=== PATIENT | female | born 1930 | race Caucasian/White ===

== ENCOUNTER 2019-04-22 14:49 | Observation (INO) ==
[2019-04-22] MEDS ORDERED: Isovue-370 500 ML BOTTLE IVP ONE (14:58)
[2019-04-22 15:16] LABS: Basophils % 0.3 %; Eosinophils # 0.1 K/mcL (0.0-0.6); Eosinophils % 0.8 %; Hematocrit 34.7 % (35.3-44.9); Hemoglobin 11.1 g/dL (11.5-15.4); Immature Granulocytes % 0.4 % (0-4); Lymphocytes # 1.9 K/mcL (0.6-4.6); Lymphocytes % 24.9 %; Mean Corpuscular Hemoglobin 32.2 pg (28.0-33.3); Mean Corpuscular Volume 100.6 fL (83.0-100.0); Mean Platelet Volume 10.7 fL (9.4-12.4); Monocytes # 0.6 K/mcL (0.0-1.3); Monocytes % 7.2 %; Neutrophils # 5.1 K/mcL (1.6-8.9); Platelet Count 181 K/mcL (140-400); Red Blood Count 3.45 M/mcL (3.82-4.97); Red Cell Distribution Width 12.9 % (11.5-14.5); Segmented Neutrophils % 66.4 %; White Blood Count 7.6 K/mcL (4.3-11.1)
[2019-04-22] MEDS ORDERED: Ipratropium/Albuterol Neb 3 ML IH ONE (15:19)
--- NOTE | 2019-04-22 15:19 | Emergency Department Note ---
Disposition Clinical Impression: TAE (acute kidney injury), Generalized weakness Dyspnea Qualifiers: Dyspnea type: unspecified Qualified Code(s): R06.00 - Dyspnea, unspecified Disposition: Admitted As Inpatient Condition: Good Referrals: Mercedez Davey MD [Primary Care Provider] - Forms: ED Satisfaction Letter Time of Disposition: 17:08 General Adult HPI - General Chief complaint: ED Shortness of Breath/Dyspnea Stated complaint: General weakness Time Seen by Provider: 04/22/19 14:50 Source: patient, family, EMS Mode of arrival: EMS Limitations: no limitations Nursing Notes Reviewed: Yes Vital Signs Reviewed: Yes - History of Present Illness HPI Narrative: 88-year-old female presents via EMS with a complaint of weakness and shortness of breath. The patient is from home. States that her home health nurse came out and thought that her heart sounds are regular. They are also concerned that she might have UTI. The patient's family states for the last 2 days she has seemed to have increased work of breathing. States it is difficult for her to walk short distances in her home. The patient denies a cough. No fever. No nausea vomiting or diarrhea. She does not feel like she has UTI currently. No other complaints. Pt Subjective Complaint: Weakness, shortness of breath Onset (ago): day(s) Pain Scale: 0 Improves with: nothing Worsens with: nothing Associated symptoms: Reports: shortness of breath. Denies: chest pain, cough, fever/chills, nausea/vomiting Treatments Prior to Arrival: none - Related Data Home Medications Medication Instructions Recorded Confirmed Acetaminophen [Tylenol Arthritis] 650 mg PO BID 02/27/19 02/27/19 Ethosuximide [Zarontin] 250 mg PO BIDWM 02/27/19 02/27/19 Glucosamine Sulfate Dipot Chlr 1,000 mg PO BID 02/27/19 02/27/19 [Glucosamine] Latanoprost [Xalatan] 1 drop BOTH EYES QPM 02/27/19 02/27/19 Levothyroxine [Synthroid] 50 mcg PO QAM 02/27/19 02/27/19 Meloxicam 15 mg PO DAILY 02/27/19 02/27/19 Omeprazole [PriLOSEC] 40 mg PO DAILY 02/27/19 02/27/19 Previous Rx's Medication Instructions Recorded Lisinopril [Zestril] 10 mg PO DAILY #30 tablet 03/04/19 Polyethylene Glycol 3350 [MiraLAX] 17 gm PO DAILY PRN #30 powd.pack 03/04/19 Psyllium [Metamucil Fiber Singles 1 packet PO TID #90 powd.pack 03/04/19 Packet] Allergies Allergy/AdvReac Type Severity Reaction Status Date / Time No Known Allergies Allergy Verified 02/27/19 16:16 All systems ED: reviewed and negative except as stated. Constitutional: Reports: weakness. Denies: fever, chills Cardiovascular: Reports: dyspnea on exertion. Denies: chest pain Respiratory: Reports: dyspnea. Denies: cough Gastrointestinal: Denies: abdominal pain, nausea, vomiting, diarrhea Genitourinary: Denies: dysuria, hematuria Past Medical History - Past Medical History Attestation: Yes The following information was validated with the patient. Source: patient Medical history: Reports: GERD, seizures, thyroid disease Surgical history: Reports: non-contributory Psychiatric history: Reports: no psych history - Social History Smoking Status: Never smoker Alcohol use: Reports: none Drug use: Reports: none Physical Exam - General Limitations: no limitations General appearance: alert, in no apparent distress - Head Head exam: atraumatic, normocephalic, normal inspection - Eye Eye exam: Present: normal appearance - ENT ENT exam: normal exam - Neck Neck exam: Present: normal inspection - Chest Chest inspection: Present: normal inspection, symmetric chest wall rise - Respiratory Respiratory exam: Present: normal lung sounds bilaterally - Cardiovascular Cardiovascular exam: Present: regular rate, normal rhythm, irregular rhythm - Abdominal Exam Abdominal exam: Present: soft, Non-Tender. Absent: tenderness, distention, guarding, rigidity - Extremities Exam Extremities exam: Present: normal inspection, full ROM - Expanded Upper Extremity Exam Shoulder exam: Present: normal inspection, full ROM Arm exam: Present: normal inspection, full ROM Elbow exam: Present: normal inspection, full ROM Forearm/Wrist exam: Present: normal inspection, full ROM Hand exam: Present: normal inspection, full ROM - Expanded Lower Extremity Exam Hip/Pelvis exam: Present: normal inspection, full ROM Upper leg exam: Present: normal inspection, full ROM Knee exam: Present: normal inspection, full ROM Lower leg exam: Present: normal inspection, full ROM Ankle exam: Present: normal inspection, full ROM Foot/toe exam: Present: normal inspection, full ROM - Neurological Exam Neurological exam: Present: other (Alert, GCS 15, no focal deficits.) - Skin Skin exam: Present: warm, dry Course Course Narrative: Patient seen and examined. Vital signs reviewed. She is 100% on room air. She appears somewhat anxious on exam. Plan for an EKG, chest x-ray, labs for her weakness. We will also obtain a CTA given her recent admission, lower shimmy swelling and exertional dyspnea to evaluate for pulmonary embolism. - Reevaluation(s) Reevaluation #1: Labs reviewed. She does have an acute kidney injury. Discussed with patient and family. They state she does not really eat and drink well at home. In light of her acute kidney injury the CTA of her chest was canceled and a VQ scan has been ordered. We will continue IV fluids. Vital Signs Temperature 97.7 F 04/22/19 14:57 Pulse Rate 82 04/22/19 14:57 Respiratory Rate 20 04/22/19 14:57 Blood Pressure 159/77 04/22/19 14:57 O2 Sat by Pulse Oximetry 98 04/22/19 14:57 Temperature 97.7 F 04/22/19 14:57 Pulse Rate 82 04/22/19 14:57 Respiratory Rate 16 04/22/19 15:44 Blood Pressure 159/77 04/22/19 14:57 O2 Sat by Pulse Oximetry 99 04/22/19 15:44 Oxygen Delivery Oxygen Delivery Room Air Medical Decision Making - [facility] Narrative Medical decision making narrative: 88-year-old female presenting with weakness, shortness of breath. She is hem odynamically stable here. Her EKG is unchanged from previous. Her chest x-ray unremarkable. Terms of labs she does have an elevated creatinine of 1.5 which was normal last month. I suspect a component of deconditioning being home now from the detention. She was unable to urinate initially for us. She has been given 500 mL of normal saline. She is pending VQ scan at time of admission. Patient admitted to the hospitalist service. - Lab Data Lab results reviewed: Yes I reviewed the patient's lab results. Result diagrams: 04/22/19 15:05 04/22/19 15:05 Lab Results 04/22/19 04/22/19 Range/Units 15:05 15:05 WBC 7.6 (4.3-11.1) K/mcL RBC 3.45 L (3.82-4.97) M/mcL Hgb 11.1 L (11.5-15.4) g/dL Hct 34.7 L (35.3-44.9) % MCV 100.6 H (83.0-100.0) fL MCH 32.2 (28.0-33.3) pg MCHC 32.0 (31.6-35.5) g/dL RDW 12.9 (11.5-14.5) % Plt Count 181 (140-400) K/mcL MPV 10.7 (9.4-12.4) fL Immature Gran % 0.4 (0-4) % Seg Neutrophils % 66.4 % Lymphocytes % 24.9 % Monocytes % 7.2 % Eosinophils % 0.8 % Basophils % 0.3 % Neutrophils # 5.1 (1.6-8.9) K/mcL Lymphocytes # 1.9 (0.6-4.6) K/mcL Monocytes # 0.6 (0.0-1.3) K/mcL Eosinophils # 0.1 (0.0-0.6) K/mcL Basophils # 0.0 (0.0-0.2) K/mcL Sodium 136 (136-145) mEq/L Potassium 4.3 (3.5-5.1) mEq/L Chloride 108 H (98-107) mEq/L Carbon Dioxide 21 L (23-29) mEq/L BUN 43 H (8-23) mg/dL Creatinine 1.50 H (0.60-1.20) mg/dL Est GFR ( Amer) 40 L (> 60) Est GFR (Non-Af Amer) 33 L (> 60) BUN/Creatinine Ratio 29 H (6-26) Glucose 78 (70-105) mg/dL Calculated Osmolality 292 (280-300) Calcium 8.9 (8.6-10.3) mg/dL Troponin I < 0.03 (< 0.04) ng/mL - Radiology Data Radiology results reviewed: Yes I reviewed the patient's radiology results. Chest X-Ray 04/22/19 14:50 IMPRESSION: No acute abnormality. D/ / Dominic Caballero MD / Dominic Caballero MD Interpreting Provider: Dominic Caballero MD - EKG Data EKG #1 EKG attestation: Yes I reviewed and interpreted this EKG. EKG results narrative: EKG demonstrates sinus rhythm with a rate of 82 beats or minute. Normal axis. Normal intervals. Normal R-wave progression. No gross ST elevations or depressions. T-wave inversions in lead 3, aVF, V4 V5 and V6. S.B.A.R. - S.B.A.R. Situation: Demographics, MOA Background: Presenting Complaint, Relevant PMH, Meds, & Allergies Assessment: Course and respsone to treatment, Exam Concerns, Patient/Family Expectation, Pertinant Lab Results Recommendation: Barrier(s) to disposition, Recommendation based on pending studies, treatments, or consults S.B.A.RChris Report Given to: Dr. Melissa Moreno Repor Time: 17:09
[2019-04-22 15:38] LABS: BUN/Creatinine Ratio 29 (6-26); Blood Urea Nitrogen 43 mg/dL (8-23); Calcium 8.9 mg/dL (8.6-10.3); Carbon Dioxide 21 mEq/L (23-29); Chloride 108 mEq/L (98-107); Glucose 78 mg/dL (70-105); Osmolality,Calculated 292 (280-300); Potassium 4.3 mEq/L (3.5-5.1); Sodium 136 mEq/L (136-145); eGFR For African Americans 40 (> 60); eGFR For Non-African Americans 33 (> 60)
[2019-04-22 15:39] LABS: Troponin I < 0.03 ng/mL (< 0.04)
[2019-04-22] MEDS ORDERED: 0.9 % Sodium Chloride 500 ML IVC ONE (15:41)
[2019-04-22] MEDS ORDERED: Ondansetron 4 MG/2 ML VIAL IVP PRN (17:13)
[2019-04-22] MEDS ORDERED: Naloxone 0.4 MG/ML INJ IVP PRN (17:13)
[2019-04-22] MEDS ORDERED: 0.9 % Sodium Chloride 1,000 ML IVC SCH (17:15)
--- NOTE | 2019-04-22 17:25 | Internal Med History&Physical ---
Date of Encounter: 04/22/19 Time of Encounter: 17:21 Internal Medicine - H&P: HPI Chief complaint: weakness and SOB 3 days duration Admitted From: Home History of present illness: Ms. Eli is a 88 year old female with history of seizure on antiseizure medication and history of hypothyroidism history of left leg cellulitis, presented to the ER with chief complaint of generalized weakness and shortness of breath, patient states that is she starts having progressive generalized weakness over the last 2 days with dyspnea on exertion, patient denied chest pain however she reports simple dry cough, patient also denied dysuria urgency frequency or lower abdominal discomfort denied nausea vomiting or change in bowel movement, denies fever chills. Patient reports pain of the left leg with swelling and redness, patient has history of left leg cellulitis secondary to cat bite in February 2019 in the ER she was found to have acute kidney injury with a serum creatinine 1.5, chest x-ray and acute VQ scan was ordered by the ER physician to rule out acute pulmonary embolism Past Med Surg Social Fam HX - Past Medical History Medical history: GERD, seizures, thyroid disease Psychiatric history: no psych history - Past Surgical History Surgical History: non-contributory - Social History Smoking Status: Never smoker Alcohol use: none Drug use: none - Family History Mother Living Status: Hx Family Cardiac Disorders: Yes Father Living Status: Hx Family Cardiac Disorders: Yes Internal Medicine - H&P: Meds Acetaminophen [Tylenol Arthritis] 650 mg PO BID 02/27/19 [History] Ethosuximide [Zarontin] 250 mg PO BIDWM 02/27/19 [History] Glucosamine Sulfate Dipot Chlr [Glucosamine] 1,000 mg PO BID 02/27/19 [History] Latanoprost [Xalatan] 1 drop BOTH EYES QPM 02/27/19 [History] Levothyroxine [Synthroid] 50 mcg PO QAM 02/27/19 [History] Meloxicam 15 mg PO DAILY 02/27/19 [History] Omeprazole [PriLOSEC] 40 mg PO DAILY 02/27/19 [History] Lisinopril [Zestril] 10 mg PO DAILY #30 tablet 03/04/19 [Rx] Polyethylene Glycol 3350 [MiraLAX] 17 gm PO DAILY PRN #30 powd.pack 03/04/19 [Rx] Psyllium [Metamucil Fiber Singles Packet] 1 packet PO TID #90 powd.pack 03/04/19 [Rx] Allergy/AdvReac Type Severity Reaction Status Date / Time No Known Allergies Allergy Verified 02/27/19 16:16 All Systems PM: A 10-system review of systems was performed and is negative for pertinent fi ndings except as documented above in the HPI. Review of systems: Review of system: Regarding cardiology respiratory GI endocrine hematology musculoskeletal all negative except for multiple was mentioned in the H&P - Constitutional Vitals: Temp Pulse Resp BP Pulse Ox 97.7 F 82 16 159/77 99 04/22/19 14:57 04/22/19 14:57 04/22/19 15:44 04/22/19 14:57 04/22/19 15:44 Exam: Physical examination: Gen.: Patient is alert and oriented, not in respiratory distress or pain HEENT: perrla , EOMI, no thyroid gland enlargement, no neck mass, supple neck Heart: S1 and S2 jeremi, normal sinus rhythm, no cardiac murmur no gallop rhythm Chest: Air entry equal bilaterally, clear chest, no wheezing, crackles or crepitation Abdomen: Soft nontender nondistended positive bowel sounds, no organomegaly Extremities: There is redness swelling and tenderness of the left leg, peripheral pulses palpable Neuro: Able to move all 4 limbs, Internal Med - H&P Results - Labs CBC & Chem 7: 04/22/19 15:05 04/22/19 15:05 Labs: Short CBC 04/22/19 Range/Units 15:05 WBC 7.6 (4.3-11.1) K/mcL Hgb 11.1 L (11.5-15.4) g/dL Hct 34.7 L (35.3-44.9) % Plt Count 181 (140-400) K/mcL Neutrophils # 5.1 (1.6-8.9) K/mcL BMP 04/22/19 15:05 Sodium 136 Potassium 4.3 Chloride 108 H Carbon Dioxide 21 L BUN 43 H Creatinine 1.50 H Glucose 78 Calcium 8.9 Cardiac Enzymes 04/22/19 Range/Units 15:05 Troponin I < 0.03 (< 0.04) ng/mL - Impressions ITS Impressions Chest X-Ray 07/25/19 14:50 IMPRESSION: No acute abnormality. D/ / Dominic Caballero MD / Dominic Caballero MD Interpreting Provider: Dominic Caballero MD - Assessment and Plan (1) Left leg swelling Current Visit: Yes Status: Acute Assessment and plan: Left leg swelling with tenderness and erythema on the left that is more warm than the right, suspect possible recurrent of cellulitis Started empirically on IV cefazolin to cover for possible streptococcal infection as the most common cause of cellulitis, 1 g every 8 hour Order venous Doppler to rule out DVT Patient has no leukocytosis, no fever check d dimer (2) TAE (acute kidney injury) Current Visit: Yes Status: Acute Assessment and plan: Serum creatinine 1.5 with BUN 43 baseline creatinine less than 1 Start on gentle IV hydration Hold nephrotoxic medication ANA inhibitor and NSAID Sent for urinalysis and urine culture to rule out UTI however the patient denied any urinary symptoms (3) Dyspnea Current Visit: Yes Status: Acute Assessment and plan: order V/Q scan to r/p PE CXR non acute on telemetry order echo to evaulate heart function Qualifiers: Dyspnea type: unspecified Qualified Code(s): R06.00 - Dyspnea, unspecified (4) General weakness Current Visit: Yes Status: Acute Assessment and plan: Could be secondary to acute kidney injury /possible left leg cellulitis Continue on IV hydration and check serum magnesium and serum phosphorus replace serum electrolytes as indicated check TSH (5) Anemia Current Visit: No Status: Chronic Assessment and plan: Hb 11.1 close to baseline check iron studies , B12 and folate Qualifiers: Anemia type: unspecified type Qualified Code(s): D64.9 - Anemia, unspecified (6) Hypertension Current Visit: No Status: Chronic Assessment and plan: monitor BP hold ANA due to TAE may start on amalodpipine if systolic more than 160 Qualifiers: Hypertension type: unspecified Qualified Code(s): I10 - Essential (primary) hypertension (7) Hypothyroid Current Visit: No Status: Chronic Assessment and plan: resume on levothyroxine check TSH Qualifiers: Hypothyroidism type: unspecified Qualified Code(s): E03.9 - Hypothyroidism, unspecified (8) Seizure disorder Current Visit: No Status: Chronic Assessment and plan: resume on antiseizure medication - Time Spent With Patient Total time spent is greater than 50% in coordination of care (as documented) at patient's floor/unit and/or counseling patient:
[2019-04-22] MEDS ORDERED: Ipratropium/Albuterol Neb 3 ML IH PRN (17:37)
[2019-04-22 18:02] LABS: Bilirubin,Urine Negative (Negative); Blood,Urine Negative (Negative); Clarity,Urine Cloudy (Clear); Color,Urine Yellow (Yellow); Glucose,Urine (UA) Normal (Normal); Ketones,Urine Negative (Negative); Leukocyte Esterase,Urine Small (Negative); Nitrite,Urine Negative (Negative); Protein,Urine Negative (Neg-Trace); Specific Gravity,Urine 1.013 (1.010-1.025); Urobilinogen,Urine Normal (Normal)
[2019-04-22 18:04] LABS: Bacteria,Urine Many per hpf (None-Few); Hyaline Casts,Urine None Seen per lpf (None-Few); RBC,Urine 0-3 per hpf (0-3); Squamous Epithelial Cell,Urine Many per lpf (None-Few); WBC,Urine 15-30 per hpf (0-3)
[2019-04-22 18:43] LABS: Magnesium 1.8 mg/dL (1.6-2.6); Phosphorous 2.3 mg/dL (2.7-4.5)
[2019-04-22] MEDS: Acetaminophen 325 MG TABLET PO SCH (21:16)
[2019-04-22] MEDS: ceFAZolin 1,000 MG in Water for inj. (sterile) 10 ML IVP SCH (23:38)
[2019-04-23 05:30] LABS: Basophils % 0.3 %; Eosinophils # 0.2 K/mcL (0.0-0.6); Hematocrit 28.8 % (35.3-44.9); Immature Granulocytes % 0.5 % (0-4); Lymphocytes # 2.1 K/mcL (0.6-4.6); Lymphocytes % 33.2 %; Mean Corpuscular HGB Conc 32.6 g/dL (31.6-35.5); Mean Platelet Volume 10.3 fL (9.4-12.4); Monocytes # 0.4 K/mcL (0.0-1.3); Neutrophils # 3.6 K/mcL (1.6-8.9); Platelet Count 170 K/mcL (140-400); Red Blood Count 2.94 M/mcL (3.82-4.97); Red Cell Distribution Width 12.9 % (11.5-14.5); White Blood Count 6.4 K/mcL (4.3-11.1)
[2019-04-23 05:39] LABS: Hemoglobin 9.4 g/dL (11.5-15.4)
[2019-04-23 05:47] LABS: Albumin 2.9 g/dL (3.5-5.7); Albumin/Globulin Ratio 1.1 (1.1-2.2); Bilirubin,Total 0.4 mg/dL (0.3-1.0); Calcium 8.2 mg/dL (8.6-10.3); Globulin 2.6 g/dL (2.4-3.5); Potassium 4.4 mEq/L (3.5-5.1); Total Protein 5.5 g/dL (6.4-8.9)
[2019-04-23 05:49] LABS: % Iron Saturation 18 % (15-50); Iron 42 mcg/dL (50-170); Transferrin 170 mg/dL (203-362)
[2019-04-23 06:07] LABS: Ferritin 101 ng/mL (10-120)
[2019-04-23 08:19] LABS: Magnesium 1.8 mg/dL (1.6-2.6); Phosphorous 3.2 mg/dL (2.7-4.5)
[2019-04-23] MEDS ORDERED: amLODIPine 5 MG TABLET PO SCH (09:00)
[2019-04-23] MEDS: Acetaminophen 325 MG TABLET PO SCH ×2 (09:36→20:47)
[2019-04-23] MEDS: ceFAZolin 1,000 MG in Water for inj. (sterile) 10 ML IVP SCH (09:37)
[2019-04-23] MEDS: ETHOSUXIMIDE 250 MG PO SCH ×2 (09:37→18:29)
--- NOTE | 2019-04-23 12:24 | Internal Med Progress Note ---
Hospitalist Progress Note - Encounter Date of Encounter: 04/23/19 Time of Encounter: 12:21 - Subjective Interval History: the patient was seen and examined at bedside. 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 and started on BB report new cat bite of left leg 2 days ago, however no open wound on examination no chest pain no fever d/c iv fluid - Exam Vitals: Temp Pulse Resp BP Pulse Ox 98.1 F 82 16 158/77 98 04/23/19 12:09 04/23/19 12:09 04/23/19 12:04/23/19 12:04/23/19 12:09 Exam: Physical examination: Gen.: Patient is alert and oriented, not in respiratory distress or pain HEENT: perrla , EOMI, no thyroid gland enlargement, no neck mass, supple neck Heart: S1 and S2 jeremi, normal sinus rhythm, no cardiac murmur no gallop rhythm Chest: Air entry equal bilaterally, clear chest, no wheezing, crackles or cr epitation Abdomen: Soft nontender nondistended positive bowel sounds, no organomegaly Extremities: There is redness swelling and tenderness of the left leg, getting better, peripheral pulses palpable Neuro: Able to move all 4 limbs, - Assessment and Plan (1) Left leg swelling Current Visit: Yes Status: Acute Assessment and Plan: getting better could be cellulitis 2/2 to new cat bite patient reports domestic cat bite 2 days ago switch to oral augmentin venous doppler negative (2) TAE (acute kidney injury) Current Visit: Yes Status: Acute Assessment and Plan: improved on iv fluid d/c iv fluid serum creatinine 1.16 and bun 36 patient has no urinary symptoms follow urine culture (3) Dyspnea Current Visit: Yes Status: Acute Assessment and Plan: johnathan 2/2 to low ef heart failure echo show ef 30% V?Q scan show low probability for PE consult crawler tractor operator start on metoprolol 25 mg bid chest clear on examination troponin negative (4) General weakness Current Visit: Yes Status: Acute Assessment and Plan: pt/ot need placement (5) Anemia Current Visit: No Status: Chronic Assessment and Plan: hb 9.4 from 11.1 no sign of bleeding dilutional effect probably check FOBT no evidence of iron deficiency on iron studies (6) Hypertension Current Visit: No Status: Chronic Assessment and Plan: start on amlodipine and BB to better control BP (7) Hypothyroid Current Visit: No Status: Chronic (8) Seizure disorder Current Visit: No Status: Chronic - Time Spent with Patient Total time spent is greater than 50% in coordination of care (as documented) at patient's floor/unit and/or counseling patient: Internal Medicine: Result - Labs CBC & Chem 7: 04/23/19 05:15 04/23/19 05:15 Labs: Short CBC 04/22/19 04/23/19 Range/Units 15:05 05:15 WBC 7.6 6.4 (4.3-11.1) K/mcL Hgb 11.1 L 9.4 L D (11.5-15.4) g/dL Hct 34.7 L 28.8 L (35.3-44.9) % Plt Count 181 170 (140-400) K/mcL Neutrophils # 5.1 3.6 (1.6-8.9) K/mcL BMP 04/22/19 04/23/19 15:05 05:15 Sodium 136 139 Potassium 4.3 4.4 Chloride 108 H 113 H Carbon Dioxide 21 L 21 L BUN 43 H 36 H Creatinine 1.50 H 1.16 Glucose 78 101 Calcium 8.9 8.2 L Cardiac Enzymes 04/22/19 04/22/19 04/22/19 Range/Units 15:05 17:56 23:32 Troponin I < 0.03 < 0.03 < 0.03 (< 0.04) ng/mL 04/23/19 Range/Units 05:15 Troponin I < 0.03 (< 0.04) ng/mL Liver Function 04/23/19 Range/Units 05:15 Total Bilirubin 0.4 (0.3-1.0) mg/dL AST 8 L (13-39) Units/L ALT 6 L (7-52) Units/L Alkaline Phosphatase 42 (34-104) Units/L Albumin 2.9 L (3.5-5.7) g/dL Urine 04/22/19 Range/Units 17:51 Urine Color Yellow (Yellow) Urine Clarity Cloudy A (Clear) Urine pH 6.0 (5.0-8.0) pH Units Ur Specific [place] 1.013 (1.010-1.025) Urine Protein Negative (Neg-Trace) mg/dL Urine Glucose (UA) Normal (Normal) mg/dL - ABG Interpretation ABG results: PT/INR, D-dimer D-Dimer 3515 ng/mLFEU (0-500) H 04/22/19 17:56 - Impressions Impressions Chest X-Ray 04/22/19 14:50 IMPRESSION: No acute abnormality. D/ / Dominic Caballero MD / Dominic Caballero MD Interpreting Provider: Dominic Caballero MD Pulmonary Perfusion Imaging 04/22/19 15:47 IMPRESSION: Low probability for pulmonary embolus. D/ / Dominic Caballero MD / Dominic Caballero MD Interpreting Provider: Dominic Caballero MD Echocardiogram 04/23/19 00:00 Impressions: LVEF 35-40%. Moderate global left ventricular systolic dysfunction. Moderate concentric left ventricular hypertrophy. Mild left ventricular diastolic dysfunction. Normal right ventricular structure and function. Mild mitral regurgitation. Mild tricuspid regurgitation. Mild pulmonic regurgitation. No pulmonary hypertension. Ordering physician notified via [employer]. Left Ventricular Wall Motion: Rest Echo Findings The apex, apical inferior, mid inferior, basal inferior, apical anterior, mid anterior, basal anterior, apical septal, mid inferior septal, basal inferior septal, apical lateral, mid anterior lateral, basal anterior lateral, mid anterior septal, mid inferior lateral, basal anterior septal and basal inferior lateral bird were hypokinetic. Findings: Study Quality * Technically adequate exam. ECG Findings * Normal sinus rhythm. Left Ventricle * LVEF 35-40%. * Normal LV chamber size. * Moderate global left ventricular systolic dysfunction. * Moderate concentric left ventricular hypertrophy. * Mild left ventricular diastolic dysfunction. * Definity echo contrast was not used. Right Ventricle * Normal right ventricular structure and function. Left Atrium * Normal left atrial size. Right Atrium * Normal right atrial size. Interatrial Septum * Interatrial septum not well evaluated. * No evidence of PFO by color Doppler. Aortic Valve * Trileaflet aortic valve. * Mildly calcified aortic valve leaflets. * Trace aortic regurgitation. * No aortic stenosis. Mitral Valve * Normal mitral valve structure. * No mitral stenosis. * Mild mitral regurgitation. Tricuspid Valve * Normal tricuspid valve structure. * No tricuspid stenosis. * Mild tricuspid regurgitation. * Estimated RVSP is 32 mmHg. * Estimated RA pressure is 3 mmHg. * No pulmonary hypertension. Pulmonic Valve * Pulmonic valve is not well visualized. * No pulmonic stenosis. * Mild pulmonic regurgitation. Aorta * Normally sized aortic root. Pericardium * The pericardium appears normal. IVC * The IVC is not dilated. * > 50% respiratory change Consult Discharge Plan - Plan Referrals: Mercedez Davey MD [Primary Care Provider] - (3) Dyspnea Qualifiers: Dyspnea type: unspecified Qualified Code(s): R06.00 - Dyspnea, unspecified (5) Anemia Qualifiers: Anemia type: unspecified type Qualified Code(s): D64.9 - Anemia, unspecified (6) Hypertension Qualifiers: Hypertension type: unspecified Qualified Code(s): I10 - Essential (primary) hypertension (7) Hypothyroid Qualifiers: Hypothyroidism type: unspecified Qualified Code(s): E03.9 - Hypothyroidism, unspecified
--- NOTE | 2019-04-23 12:42 | Electrocardiograph Report ---
[facility] [employer] Test Date: 2019-04-22 Pat Name: Antoinette Eli Department: [id number] Room: 3A41 Gender: F Emergency Room Specialist: : [id number] Requested By: Jose Wasserman Order Number: [id number] Reading MD: Jim Daley Measurements Intervals [place] Rate: 82 P: 44 MD: 185 QRS: -32 QRSD: 117 T: -18 QT: 378 QTc: 442 Interpretive Statements Sinus rhythm Left ventricular hypertrophy Nonspecific T abnormalities, diffuse leads Electronically Signed On 04-23-2019 12:40:20 EDT by Jim Daley
--- NOTE | 2019-04-23 15:36 | Event Note ---
Date of Encounter: 04/23/19 Time of Encounter: 15:31 - Cardiology Event Note Cardiology consulted for new cardiomyopathy. I attempted to see patient, however states they are not sure they would like to see cardiology. concerned regarding bill for cardiology consult. I spent a lengthy amount of time explaining cardiology process. states understanding. Also states that if they decide they would like to see cardiology, they would like to see cardiology at [facility]. Cardiology will sign off. Re- consult if patient/family agreeable to see cardiology at [facility].
[2019-04-24 06:44] VITALS: BP 145/72
[2019-04-24 07:08] LABS: Basophils % 0.4 %; Eosinophils # 0.3 K/mcL (0.0-0.6); Eosinophils % 4.1 %; Hematocrit 31.2 % (35.3-44.9); Immature Granulocytes % 0.6 % (0-4); Lymphocytes # 2.9 K/mcL (0.6-4.6); Lymphocytes % 41.2 %; Mean Corpuscular HGB Conc 32.1 g/dL (31.6-35.5); Mean Corpuscular Hemoglobin 31.6 pg (28.0-33.3); Mean Corpuscular Volume 98.7 fL (83.0-100.0); Mean Platelet Volume 10.5 fL (9.4-12.4); Monocytes # 0.5 K/mcL (0.0-1.3); Monocytes % 7.2 %; Neutrophils # 3.3 K/mcL (1.6-8.9); Platelet Count 195 K/mcL (140-400); Red Blood Count 3.16 M/mcL (3.82-4.97); Segmented Neutrophils % 46.5 %; White Blood Count 7.1 K/mcL (4.3-11.1)
[2019-04-24 07:28] LABS: Albumin 2.9 g/dL (3.5-5.7); Albumin/Globulin Ratio 1.1 (1.1-2.2); Bilirubin,Total 0.4 mg/dL (0.3-1.0); Calcium 8.8 mg/dL (8.6-10.3); Globulin 2.7 g/dL (2.4-3.5); Potassium 4.4 mEq/L (3.5-5.1); Total Protein 5.6 g/dL (6.4-8.9)
[2019-04-24] MEDS: ETHOSUXIMIDE 250 MG PO SCH (07:46)
[2019-04-24] MEDS: Acetaminophen 325 MG TABLET PO SCH (07:47)
[2019-04-24] MEDS ORDERED: amLODIPine 5 MG TABLET PO SCH (09:00)
--- NOTE | 2019-04-24 09:23 | Internal Med Progress Note ---
Hospitalist Progress Note - Encounter Date of Encounter: 04/24/19 Time of Encounter: 09:20 - Subjective Interval History: the patient was seen and examined at bedside. feel well no cp or SOB at rest has new onset cardiomyopathy, i did consult branch operations manager for cardiac work up however patient refuse cardiology seeing patient due to cost concern and wants transfer patient to another facility, i did discuss with patient that such transfer is not to high level of care and probably will cost patient more will discuss it with today meanwhile started on coreg bid and lisinopril 10 mg daily - Exam Vitals: Temp Pulse Resp BP Pulse Ox 97.9 F 74 16 145/72 97 04/24/19 06:41 04/24/19 06:41 04/24/19 06:41 04/24/19 06:41 04/24/19 06:41 Exam: Physical examination: Gen.: Patient is alert and oriented, not in respiratory distress or pain HEENT: perrla , EOMI, no thyroid gland enlargement, no neck mass, supple neck Heart: S1 and S2 jeremi, normal sinus rhythm, no cardiac murmur no gallop rhythm Chest: Air entry equal bilaterally, clear chest, no wheezing, crackles or crepitation Abdomen: Soft nontender nondistended positive bowel sounds, no organomegaly Extremities: There is redness swelling and tenderness of the left leg getting better , peripheral pulses palpable Neuro: Able to move all 4 limbs, - Assessment and Plan (1) Left leg swelling Current Visit: Yes Status: Acute Assessment and Plan: getting better could be cellulitis 2/2 to new cat bite patient reports domestic cat bite 3 days ago switch to oral augmentin venous doppler negative (2) TAE (acute kidney injury) Current Visit: Yes Status: Resolved Assessment and Plan: mproved on iv fluid d/c iv fluid serum creatinine 1.13 and bun 28 patient has no urinary symptoms urine culture growing unspecified micro organism (3) Dyspnea Current Visit: Yes Status: Acute Assessment and Plan: johnathan 2/2 to new onset cardiomyopathy echo show ef 30% V?Q scan show low probability for PE consulted branch operations manager however signed off due to patient refusal cardiology recommend cardiac work up, patient refuse doing test in our hospital start on coreg and small dose ANA with recovery of renal function chest clear on examination troponin negative (4) General weakness Current Visit: Yes Status: Acute Assessment and Plan: 2/2 to cardiomyopathy and TAE pt/ot need placement (5) Anemia Current Visit: No Status: Chronic Assessment and Plan: hb 10 close to baseline no sign of bleeding check FOBT no evidence of iron deficiency on iron studies (6) Hypertension Current Visit: No Status: Chronic Assessment and Plan: better on new medication BB and ANA stop amlodipine (7) Hypothyroid Current Visit: No Status: Chronic Assessment and Plan: on levothyroxine (8) Seizure disorder Current Visit: No Status: Chronic Assessment and Plan: on home medication - Time Spent with Patient Total time spent is greater than 50% in coordination of care (as documented) at patient's floor/unit and/or counseling patient: Internal Medicine: Result - Labs CBC & Chem 7: 04/24/19 06:23 04/24/19 06:23 Labs: Short CBC 04/24/19 Range/Units 06:23 WBC 7.1 (4.3-11.1) K/mcL Hgb 10.0 L (11.5-15.4) g/dL Hct 31.2 L (35.3-44.9) % Plt Count 195 (140-400) K/mcL Neutrophils # 3.3 (1.6-8.9) K/mcL BMP 04/24/19 06:23 Sodium 138 Potassium 4.4 Chloride 109 H Carbon Dioxide 22 L BUN 28 H Creatinine 1.13 Glucose 97 Calcium 8.8 Liver Function 04/24/19 Range/Units 06:23 Total Bilirubin 0.4 (0.3-1.0) mg/dL AST 11 L (13-39) Units/L ALT 6 L (7-52) Units/L Alkaline Phosphatase 48 (34-104) Units/L Albumin 2.9 L (3.5-5.7) g/dL - ABG Interpretation ABG results: PT/INR, D-dimer D-Dimer 3515 ng/mLFEU (0-500) H 04/22/19 17:56 - Impressions Impressions Echocardiogram 04/23/19 00:00 Impressions: LVEF 35-40%. Moderate global left ventricular systolic dysfunction. Moderate concentric left ventricular hypertrophy. Mild left ventricular diastolic dysfunction. Normal right ventricular structure and function. Mild mitral regurgitation. Mild tricuspid regurgitation. Mild pulmonic regurgitation. No pulmonary hypertension. Ordering physician notified via [employer]. Left Ventricular Wall Motion: Rest Echo Findings The apex, apical inferior, mid inferior, basal inferior, apical anterior, mid anterior, basal anterior, apical septal, mid inferior septal, basal inferior septal, apical lateral, mid anterior lateral, basal anterior lateral, mid anterior septal, mid inferior lateral, basal anterior septal and basal inferior lateral bird were hypokinetic. Findings: Study Quality * Technically adequate exam. ECG Findings * Normal sinus rhythm. Left Ventricle * LVEF 35-40%. * Normal LV chamber size. * Moderate global left ventricular systolic dysfunction. * Moderate concentric left ventricular hypertrophy. * Mild left ventricular diastolic dysfunction. * Definity echo contrast was not used. Right Ventricle * Normal right ventricular structure and function. Left Atrium * Normal left atrial size. Right Atrium * Normal right atrial size. Interatrial Septum * Interatrial septum not well evaluated. * No evidence of PFO by color Doppler. Aortic Valve * Trileaflet aortic valve. * Mildly calcified aortic valve leaflets. * Trace aortic regurgitation. * No aortic stenosis. Mitral Valve * Normal mitral valve structure. * No mitral stenosis. * Mild mitral regurgitation. Tricuspid Valve * Normal tricuspid valve structure. * No tricuspid stenosis. * Mild tricuspid regurgitation. * Estimated RVSP is 32 mmHg. * Estimated RA pressure is 3 mmHg. * No pulmonary hypertension. Pulmonic Valve * Pulmonic valve is not well visualized. * No pulmonic stenosis. * Mild pulmonic regurgitation. Aorta * Normally sized aortic root. Pericardium * The pericardium appears normal. IVC * The IVC is not dilated. * > 50% respiratory change Consult Discharge Plan - Plan Referrals: Mercedez Davey MD [Primary Care Provider] - (3) Dyspnea Qualifiers: Dyspnea type: unspecified Qualified Code(s): R06.00 - Dyspnea, unspecified (5) Anemia Qualifiers: Anemia type: unspecified type Qualified Code(s): D64.9 - Anemia, unspecified (6) Hypertension Qualifiers: Hypertension type: unspecified Qualified Code(s): I10 - Essential (primary) hypertension (7) Hypothyroid Qualifiers: Hypothyroidism type: unspecified Qualified Code(s): E03.9 - Hypothyroidism, unspecified
--- NOTE | 2019-04-24 13:09 | Discharge Summary ---
Orders not resulted at time of discharge: Pending orders 04/22/19 17:56 Culture,Blood [BC] Stat Date of Encounter: 04/24/19 Time of Encounter: 13:06 - Discharge Diagnosis (1) Left leg swelling Priority: Primary Status: Acute (2) TAE (acute kidney injury) Priority: Secondary Status: Resolved (3) Dyspnea Priority: Primary Status: Acute Qualifiers: Dyspnea type: unspecified Qualified Code(s): R06.00 - Dyspnea, unspecified (4) General weakness Priority: Secondary Status: Acute (5) Anemia Priority: Secondary Status: Chronic Qualifiers: Anemia type: unspecified type Qualified Code(s): D64.9 - Anemia, unspecified (6) Hypertension Priority: Secondary Status: Chronic Qualifiers: Hypertension type: unspecified Qualified Code(s): I10 - Essential (primary) hypertension (7) Hypothyroid Priority: Secondary Status: Chronic Qualifiers: Hypothyroidism type: unspecified Qualified Code(s): E03.9 - Hypothyroidism, unspecified (8) Seizure disorder Priority: Secondary Status: Chronic Hospital course: Ms. Eli is a 88 year old female with history of high blood pressure was a dmitted because of acute shortness of breath with acute kidney injury was found to have a new onset cardiomyopathy with ejection fraction 30% on echocardiogram, still operator brandy was consulted however the patient's family refused cardiology service and they want take the patient to other hospital, patient started on Coreg and lisinopril, acute kidney injury has resolved, patient has no chest pain, I discussed with the patient's who prefer to leave AGAINST MEDICAL ADVICE, explained to the patient's and the patient's family risk of leaving AMA. patient will leave hospital AMA - Time Spent with Patient Total time spent providing and/or coordinating discharge services: Time spent: Greater than 30 minutes - Discharge Medications Prescriptions: No Action Meloxicam 15 mg PO DAILY Levothyroxine [Synthroid] 50 mcg PO QAM Ethosuximide [Zarontin] 250 mg PO BIDWM Acetaminophen [Tylenol Arthritis] 650 mg PO BID Latanoprost [Xalatan] 1 drop BOTH EYES QPM Omeprazole [PriLOSEC] 40 mg PO DAILY Docusate [Colace] 100 mg PO DAILY PRN PRN Reason: Constipation Aspirin [Lo-Dose Aspirin EC] 81 mg PO DAILY Glucosamine Sulfate Dipot Chlr [Glucosamine] 1,000 mg PO DAILY Megestrol Acetate [Megace] 400 mg PO DAILY Home Medications: Acetaminophen [Tylenol Arthritis] 650 mg PO BID 02/27/19 [History] Ethosuximide [Zarontin] 250 mg PO BIDWM 02/27/19 [History] Latanoprost [Xalatan] 1 drop BOTH EYES QPM 02/27/19 [History] Levothyroxine [Synthroid] 50 mcg PO QAM 02/27/19 [History] Meloxicam 15 mg PO DAILY 02/27/19 [History] Omeprazole [PriLOSEC] 40 mg PO DAILY 02/27/19 [History] Docusate [Colace] 100 mg PO DAILY PRN 04/22/19 [History] Aspirin [Lo-Dose Aspirin EC] 81 mg PO DAILY 04/23/19 [History] Glucosamine Sulfate Dipot Chlr [Glucosamine] 1,000 mg PO DAILY 04/23/19 [History] Megestrol Acetate [Megace] 400 mg PO DAILY 04/23/19 [History] Allergies/Adverse Reactions: Allergy/AdvReac Type Severity Reaction Status Date / Time No Known Allergies Allergy Verified 02/27/19 16:16 Date of admission: 04/22/19 18:01 Primary care physician: Mercedez Davey Consults: 04/22/19 17:15 Consult to Physical Therapy [CONS] Routine Comment: Evaluate, develop and implement POC Reason for Consult: weakness Does patient have active BEDREST order?: No Is patient medically & hemodynamically stable?: Yes Patient assessed for mobility or mobilized this visit?: Yes 04/22/19 21:02 Consult to Pattern Marking Supervisor [CONS] Routine Reason for SW Consult: D/c planning. Pt has therapy unsure who through 04/23/19 12:33 Consult to Occupational Therapy [CONS] Routine Comment: Evaluate, develop and implement POC Reason for Consult: weakness Does patient have active BEDREST order?: No Is patient medically & hemodynamically stable?: Yes Patient assessed for mobility or mobilized this visit?: No - Constitutional Vitals: Temp Pulse Resp BP Pulse Ox 97.9 F 74 16 145/72 97 04/24/19 06:41 04/24/19 06:41 04/24/19 06:41 04/24/19 06:41 04/24/19 06:41 Exam: Physical examination: Gen.: Patient is alert and oriented, not in respiratory distress or pain HEENT: perrla , EOMI, no thyroid gland enlargement, no neck mass, supple neck Heart: S1 and S2 jeremi, normal sinus rhythm, no cardiac murmur no gallop rhythm Chest: Air entry equal bilaterally, clear chest, no wheezing, crackles or crepitation Abdomen: Soft nontender nondistended positive bowel sounds, no organomegaly Extremities: There is redness swelling and tenderness of the left leg getting better , peripheral pulses palpable Neuro: Able to move all 4 limbs, - Patient Status Disposition: Home, Self-Care Condition: Good - Discharge Instructions Follow Up With: Mercedez Davey MD [Primary Care Provider] -
== END 2019-04-24 13:45 | disposition left against medical advice (07) ==
LOC: EMEROOARM 14:49 → 3ANU 14:49
PROVIDERS: ADMIT Internal Medicine Nephrology; ATTEND Internal Medicine Nephrology

== ENCOUNTER 2020-03-16 15:55 | Inpatient (IN) ==
[2020-03-16] MEDS ORDERED: *HR* Heparin 5,000 UNIT/ML VIAL IVP PRN ×2 (18:26)
[2020-03-16] MEDS ORDERED: *HR* Heparin 5,000 UNIT/ML VIAL IVP ONE (18:26)
[2020-03-16] MEDS ORDERED: Heparin 25,000 UNIT/250 ML D5W 25,000 UNIT/250 ML IV.SOLN IVC SCH (18:30)
[2020-03-16 18:57] LABS: Basophils % 0.6 %; Eosinophils # 0.1 K/mcL (0.0-0.6); Eosinophils % 1.8 %; Hematocrit 36.5 % (35.3-44.9); Hemoglobin 11.8 g/dL (11.5-15.4); Immature Granulocytes % 0.1 % (0-4); Lymphocytes # 2.4 K/mcL (0.6-4.6); Lymphocytes % 33.7 %; Mean Corpuscular HGB Conc 32.3 g/dL (31.6-35.5); Mean Corpuscular Hemoglobin 32.2 pg (28.0-33.3); Mean Corpuscular Volume 99.7 fL (83.0-100.0); Mean Platelet Volume 9.8 fL (9.4-12.4); Monocytes # 0.5 K/mcL (0.0-1.3); Monocytes % 7.6 %; Platelet Count 184 K/mcL (140-400); Red Blood Count 3.66 M/mcL (3.82-4.97); Red Cell Distribution Width 12.3 % (11.5-14.5); Segmented Neutrophils % 56.2 %; White Blood Count 7.1 K/mcL (4.3-11.1)
[2020-03-16 19:01] LABS: Heparin anti-factor XA UFH 0.08 IU/mL (0.30-0.70); INR 0.9; Prothrombin Time 10.7 Seconds (9.4-12.1)
[2020-03-16 19:04] LABS: Activated Partial Thrombo Time 30.2 Seconds (26.0-36.0)
[2020-03-16 19:17] LABS: Calcium 8.9 mg/dL (8.6-10.3)
[2020-03-16] MEDS ORDERED: 0.9 % Sodium Chloride 1,000 ML IVC SCH (21:00)
[2020-03-16] MEDS ORDERED: Acetaminophen 325 MG TABLET PO PRN (21:00)
[2020-03-16] MEDS ORDERED: Naloxone 0.4 MG/ML INJ IVP PRN (21:00)
[2020-03-16] MEDS ORDERED: *HR* Promethazine 25 MG/ML VIAL IVP PRN (21:00)
[2020-03-17 02:02] LABS: Basophils % 0.6 %; Eosinophils # 0.3 K/mcL (0.0-0.6); Eosinophils % 3.6 %; Hematocrit 30.2 % (35.3-44.9); Immature Granulocytes % 0.1 % (0-4); Lymphocytes # 3.1 K/mcL (0.6-4.6); Lymphocytes % 43.9 %; Mean Corpuscular HGB Conc 32.8 g/dL (31.6-35.5); Mean Corpuscular Hemoglobin 32.6 pg (28.0-33.3); Mean Corpuscular Volume 99.3 fL (83.0-100.0); Mean Platelet Volume 10.1 fL (9.4-12.4); Monocytes # 0.6 K/mcL (0.0-1.3); Monocytes % 8.4 %; Neutrophils # 3.1 K/mcL (1.6-8.9); Platelet Count 149 K/mcL (140-400); Red Blood Count 3.04 M/mcL (3.82-4.97); Red Cell Distribution Width 12.4 % (11.5-14.5); Segmented Neutrophils % 43.4 %; White Blood Count 7.2 K/mcL (4.3-11.1)
[2020-03-17 02:03] LABS: Hemoglobin 9.9 g/dL (11.5-15.4)
[2020-03-17 02:05] LABS: INR 1.1; Prothrombin Time 12.7 Seconds (9.4-12.1)
[2020-03-17 02:21] LABS: Calcium 8.1 mg/dL (8.6-10.3); Magnesium 1.8 mg/dL (1.6-2.6); Potassium 3.9 mEq/L (3.5-5.1)
[2020-03-17] MEDS ORDERED: ETHOSUXIMIDE 250 MG PO SCH (08:00)
[2020-03-17] MEDS: Aspirin Enteric Coated 81 MG Tablet PO SCH (08:28)
[2020-03-17] MEDS ORDERED: Apixaban 5 MG TABLET PO SCH (09:00)
[2020-03-17] MEDS: ETHOSUXIMIDE 250 MG PO SCH (13:27)
[2020-03-17 13:47] LABS: Hematocrit 32.9 % (35.3-44.9); Hemoglobin 10.5 g/dL (11.5-15.4); Mean Corpuscular HGB Conc 31.9 g/dL (31.6-35.5); Mean Corpuscular Hemoglobin 31.7 pg (28.0-33.3); Mean Corpuscular Volume 99.4 fL (83.0-100.0); Mean Platelet Volume 10.1 fL (9.4-12.4); Platelet Count 170 K/mcL (140-400); Red Blood Count 3.31 M/mcL (3.82-4.97); Red Cell Distribution Width 12.4 % (11.5-14.5); White Blood Count 6.2 K/mcL (4.3-11.1)
[2020-03-17] MEDS ORDERED: Latanoprost 2.5 ML BOTTLE BOTH EYES SCH (18:00)
[2020-03-17] MEDS ORDERED: Warfarin perPT PO PRN (18:00)
[2020-03-17 19:57] LABS: Vitamin B12 315 pg/mL (250-1100); Vitamin D 25 Hydroxy 17 ng/mL (30-80)
[2020-03-17] MEDS ORDERED: *HR* Heparin 5,000 UNIT/ML VIAL IVP PRN ×2 (21:00)
[2020-03-17] MEDS ORDERED: Heparin 25,000 UNIT/250 ML D5W 25,000 UNIT/250 ML IV.SOLN IVC SCH (21:00)
[2020-03-17] MEDS ORDERED: *HR* Warfarin 2.5 MG TABLET PO ONE (21:00)
[2020-03-17] MEDS: Heparin 25,000 UNIT/250 ML D5W 25,000 UNIT/250 ML IV.SOLN IVC SCH (23:58)
[2020-03-18 02:25] LABS: INR 1.3; Prothrombin Time 14.5 Seconds (9.4-12.1)
[2020-03-18 08:52] LABS: Basophils % 0.3 %; Eosinophils # 0.3 K/mcL (0.0-0.6); Eosinophils % 4.9 %; Hematocrit 31.1 % (35.3-44.9); Hemoglobin 10.2 g/dL (11.5-15.4); Immature Granulocytes % 0.2 % (0-4); Lymphocytes # 2.5 K/mcL (0.6-4.6); Mean Corpuscular HGB Conc 32.8 g/dL (31.6-35.5); Mean Corpuscular Hemoglobin 32.3 pg (28.0-33.3); Mean Corpuscular Volume 98.4 fL (83.0-100.0); Mean Platelet Volume 10.1 fL (9.4-12.4); Monocytes # 0.5 K/mcL (0.0-1.3); Monocytes % 7.2 %; Platelet Count 153 K/mcL (140-400); Red Blood Count 3.16 M/mcL (3.82-4.97); Red Cell Distribution Width 12.3 % (11.5-14.5); Segmented Neutrophils % 47.4 %; White Blood Count 6.3 K/mcL (4.3-11.1)
[2020-03-18] MEDS ORDERED: amLODIPine 5 MG TABLET PO SCH (09:00)
[2020-03-18 09:12] LABS: Calcium 8.8 mg/dL (8.6-10.3); Potassium 4.1 mEq/L (3.5-5.1)
[2020-03-18] MEDS: Aspirin Enteric Coated 81 MG Tablet PO SCH (09:30)
[2020-03-18] MEDS: ETHOSUXIMIDE 250 MG PO SCH (09:30)
[2020-03-18] MEDS ORDERED: *HR* Warfarin 2.5 MG TABLET PO ONE (18:00)
[2020-03-18] MEDS: Latanoprost 2.5 ML BOTTLE BOTH EYES SCH (20:40)
[2020-03-19 01:43] LABS: Basophils % 0.4 %; Eosinophils # 0.3 K/mcL (0.0-0.6); Eosinophils % 3.6 %; Hemoglobin 9.4 g/dL (11.5-15.4); Immature Granulocytes % 0.3 % (0-4); Lymphocytes # 2.8 K/mcL (0.6-4.6); Lymphocytes % 40.1 %; Mean Corpuscular HGB Conc 32.4 g/dL (31.6-35.5); Mean Corpuscular Hemoglobin 31.9 pg (28.0-33.3); Mean Corpuscular Volume 98.3 fL (83.0-100.0); Mean Platelet Volume 10.2 fL (9.4-12.4); Monocytes # 0.6 K/mcL (0.0-1.3); Monocytes % 8.8 %; Neutrophils # 3.3 K/mcL (1.6-8.9); Platelet Count 147 K/mcL (140-400); Red Blood Count 2.95 M/mcL (3.82-4.97); Red Cell Distribution Width 12.3 % (11.5-14.5); Segmented Neutrophils % 46.8 %
[2020-03-19 02:06] LABS: Calcium 8.4 mg/dL (8.6-10.3)
[2020-03-19 02:35] LABS: INR 1.1; Prothrombin Time 12.3 Seconds (9.4-12.1)
[2020-03-19] MEDS: Heparin 25,000 UNIT/250 ML D5W 25,000 UNIT/250 ML IV.SOLN IVC SCH (06:29)
[2020-03-19] MEDS: ETHOSUXIMIDE 250 MG PO SCH (07:49)
[2020-03-19] MEDS: amLODIPine 5 MG TABLET PO SCH (07:49)
[2020-03-19] MEDS: Aspirin Enteric Coated 81 MG Tablet PO SCH (07:49)
[2020-03-19] MEDS: 0.9 % Sodium Chloride 1,000 ML IVC SCH (15:20)
[2020-03-19] MEDS ORDERED: *HR* Warfarin 5 MG TABLET PO ONE (18:00)
[2020-03-19] MEDS: Latanoprost 2.5 ML BOTTLE BOTH EYES SCH (20:15)
[2020-03-20 02:53] LABS: Basophils % 0.4 %; Eosinophils # 0.3 K/mcL (0.0-0.6); Eosinophils % 4.1 %; Hematocrit 29.1 % (35.3-44.9); Hemoglobin 9.2 g/dL (11.5-15.4); Immature Granulocytes % 0.3 % (0-4); Lymphocytes # 2.6 K/mcL (0.6-4.6); Lymphocytes % 35.7 %; Mean Corpuscular HGB Conc 31.6 g/dL (31.6-35.5); Mean Corpuscular Hemoglobin 31.4 pg (28.0-33.3); Mean Corpuscular Volume 99.3 fL (83.0-100.0); Mean Platelet Volume 10.3 fL (9.4-12.4); Monocytes # 0.6 K/mcL (0.0-1.3); Monocytes % 8.5 %; Neutrophils # 3.7 K/mcL (1.6-8.9); Platelet Count 147 K/mcL (140-400); Red Blood Count 2.93 M/mcL (3.82-4.97); Red Cell Distribution Width 12.3 % (11.5-14.5); White Blood Count 7.3 K/mcL (4.3-11.1)
[2020-03-20 02:57] LABS: INR 1.2; Prothrombin Time 13.8 Seconds (9.4-12.1)
[2020-03-20 03:14] LABS: Calcium 8.4 mg/dL (8.6-10.3); Potassium 3.9 mEq/L (3.5-5.1)
[2020-03-20] MEDS: Aspirin Enteric Coated 81 MG Tablet PO SCH (08:39)
[2020-03-20] MEDS: amLODIPine 5 MG TABLET PO SCH (08:39)
[2020-03-20] MEDS: carvediloL 6.25 MG TABLET PO SCH ×2 (08:39→17:42)
[2020-03-20] MEDS: ETHOSUXIMIDE 250 MG PO SCH (08:40)
[2020-03-20] MEDS: 0.9 % Sodium Chloride 1,000 ML IVC SCH (17:43)
[2020-03-20] MEDS: Heparin 25,000 UNIT/250 ML D5W 25,000 UNIT/250 ML IV.SOLN IVC SCH (17:46)
[2020-03-20] MEDS ORDERED: *HR* Warfarin 5 MG TABLET PO ONE (18:00)
[2020-03-20] MEDS: Latanoprost 2.5 ML BOTTLE BOTH EYES SCH (20:15)
[2020-03-21] MEDS: Heparin 25,000 UNIT/250 ML D5W 25,000 UNIT/250 ML IV.SOLN IVC SCH ×2 (00:23→19:37)
[2020-03-21 02:30] LABS: Basophils % 0.4 %; Eosinophils # 0.4 K/mcL (0.0-0.6); Eosinophils % 5.2 %; Hematocrit 28.9 % (35.3-44.9); Hemoglobin 9.4 g/dL (11.5-15.4); Immature Granulocytes % 0.3 % (0-4); Lymphocytes # 2.6 K/mcL (0.6-4.6); Lymphocytes % 34.2 %; Mean Corpuscular HGB Conc 32.5 g/dL (31.6-35.5); Mean Corpuscular Hemoglobin 31.5 pg (28.0-33.3); Monocytes # 0.7 K/mcL (0.0-1.3); Monocytes % 8.6 %; Platelet Count 163 K/mcL (140-400); Red Blood Count 2.98 M/mcL (3.82-4.97); Red Cell Distribution Width 12.4 % (11.5-14.5); Segmented Neutrophils % 51.3 %; White Blood Count 7.7 K/mcL (4.3-11.1)
[2020-03-21 02:48] LABS: Calcium 8.2 mg/dL (8.6-10.3); Potassium 4.1 mEq/L (3.5-5.1)
[2020-03-21 03:30] LABS: INR 1.8; Prothrombin Time 20.3 Seconds (9.4-12.1)
[2020-03-21] MEDS: carvediloL 6.25 MG TABLET PO SCH ×2 (08:48→17:33)
[2020-03-21] MEDS: Aspirin Enteric Coated 81 MG Tablet PO SCH (08:48)
[2020-03-21] MEDS: amLODIPine 5 MG TABLET PO SCH (08:48)
[2020-03-21] MEDS: ETHOSUXIMIDE 250 MG PO SCH (08:49)
[2020-03-21] MEDS: 0.9 % Sodium Chloride 1,000 ML IVC SCH (15:42)
[2020-03-21] MEDS ORDERED: *HR* Warfarin 2.5 MG TABLET PO ONE (18:00)
[2020-03-21] MEDS: Latanoprost 2.5 ML BOTTLE BOTH EYES SCH (19:37)
[2020-03-22 02:39] LABS: Basophils % 0.5 %; Eosinophils # 0.3 K/mcL (0.0-0.6); Hematocrit 31.1 % (35.3-44.9); Hemoglobin 10.2 g/dL (11.5-15.4); Immature Granulocytes % 0.4 % (0-4); Lymphocytes # 2.8 K/mcL (0.6-4.6); Lymphocytes % 35.1 %; Mean Corpuscular HGB Conc 32.8 g/dL (31.6-35.5); Mean Corpuscular Hemoglobin 31.7 pg (28.0-33.3); Mean Corpuscular Volume 96.6 fL (83.0-100.0); Mean Platelet Volume 10.4 fL (9.4-12.4); Monocytes # 0.7 K/mcL (0.0-1.3); Monocytes % 8.9 %; Neutrophils # 4.1 K/mcL (1.6-8.9); Platelet Count 177 K/mcL (140-400); Red Blood Count 3.22 M/mcL (3.82-4.97); Red Cell Distribution Width 12.5 % (11.5-14.5); Segmented Neutrophils % 51.1 %; White Blood Count 8.1 K/mcL (4.3-11.1)
[2020-03-22 02:50] LABS: Calcium 8.9 mg/dL (8.6-10.3); Potassium 4.1 mEq/L (3.5-5.1)
[2020-03-22 03:02] LABS: INR 2.8; Prothrombin Time 31.5 Seconds (9.4-12.1)
[2020-03-22] MEDS: carvediloL 6.25 MG TABLET PO SCH (08:47)
[2020-03-22] MEDS: Aspirin Enteric Coated 81 MG Tablet PO SCH (08:47)
[2020-03-22] MEDS: amLODIPine 5 MG TABLET PO SCH (08:47)
[2020-03-22] MEDS: ETHOSUXIMIDE 250 MG PO SCH (08:48)
[2020-03-22 11:13] VITALS: BP 128/68
== END 2020-03-22 14:43 | DRG 299 ==
LOC: EMEROOARM 15:55 → 2ANU 15:55 → SUATTDRO 03-17 09:11
PROVIDERS: ADMIT Pharmacist; ATTEND Internal Medicine

== ENCOUNTER 2020-05-14 14:25 | Inpatient (IN) ==
[2020-05-14 14:56] LABS: Basophils % 0.4 %; Eosinophils % 0.4 %; Hematocrit 32.2 % (35.3-44.9); Hemoglobin 10.3 g/dL (11.5-15.4); Immature Granulocytes % 0.4 % (0-4); Lymphocytes # 1.5 K/mcL (0.6-4.6); Lymphocytes % 16.1 %; Mean Corpuscular Hemoglobin 31.2 pg (28.0-33.3); Mean Corpuscular Volume 97.6 fL (83.0-100.0); Mean Platelet Volume 9.9 fL (9.4-12.4); Monocytes # 0.7 K/mcL (0.0-1.3); Monocytes % 7.3 %; Platelet Count 324 K/mcL (140-400); Segmented Neutrophils % 75.4 %; White Blood Count 9.3 K/mcL (4.3-11.1)
[2020-05-14 15:34] LABS: Albumin 3.2 g/dL (3.5-5.7); Albumin/Globulin Ratio 0.9 (1.1-2.2); Bilirubin,Total 0.5 mg/dL (0.3-1.0); Calcium 9.2 mg/dL (8.6-10.3); Globulin 3.5 g/dL (2.4-3.5); Potassium 3.7 mEq/L (3.5-5.1); Total Protein 6.7 g/dL (6.4-8.9); Troponin I 0.1 ng/mL (< 0.04)
[2020-05-14 16:47] LABS: Adenovirus Not Detected (Not Detect); Bordetella Pertussis Not Detected (Not Detect); Chlamydophila pneumoniae Not Detected (Not Detect); Coronavirus 229E Not Detected (Not Detect); Coronavirus HKU1 Not Detected (Not Detect); Coronavirus NL63 Not Detected (Not Detect); Coronavirus OC43 Not Detected (Not Detect); Human Metapneumovirus Not Detected (Not Detect); Human Rhinovirus/Enterovirus Not Detected (Not Detect); Influenza A Subtype 2009 H1 Not Detected (Not Detect); Influenza B Not Detected (Not Detect); Mycoplasma pneumoniae Not Detected (Not Detect); Parainfluenza Virus 1 Not Detected (Not Detect); Parainfluenza Virus 2 Not Detected (Not Detect); Parainfluenza Virus 3 Not Detected (Not Detect); Parainfluenza Virus 4 Not Detected (Not Detect); Respiratory Syncytial Virus Not Detected (Not Detect)
[2020-05-14] MEDS ORDERED: Furosemide 40 MG/4 ML VIAL IVP ONE (16:54)
[2020-05-14] MEDS ORDERED: Azithromycin 500 MG in 0.9 % Sodium Chloride 250 ML IVPB ONE (17:38)
[2020-05-14] MEDS ORDERED: Naloxone 0.4 MG/ML INJ IVP PRN (17:52)
[2020-05-14 17:58] LABS: Activated Partial Thrombo Time 54.8 Seconds (26.0-36.0)
[2020-05-14 18:11] LABS: INR 8.6
[2020-05-14 18:12] LABS: Prothrombin Time 98.2 Seconds (9.4-12.1)
[2020-05-14] MEDS ORDERED: Perflutren Lipid Microsphere 1.3 ML in 0.9 % Sodium Chloride 8.7 ML IVP PRN (18:42)
[2020-05-14] MEDS ORDERED: Nitroglycerin 0.4 MG TAB.SUBL SL PRN (18:49)
[2020-05-14] MEDS ORDERED: *HR* Metoprolol 5 MG/5 ML VIAL IVP PRN (18:52)
[2020-05-14 19:10] LABS: Bacteria,Urine Few per hpf (None-Few); Bilirubin,Urine Negative (Negative); Blood,Urine Small (Negative); Calcium Oxalate Crystals,Urine Present; Clarity,Urine Turbid (Clear); Color,Urine Light-Yellow (Yellow); Glucose,Urine (UA) Normal (Normal); Hyaline Casts,Urine Few per lpf (None Seen); Ketones,Urine Negative (Negative); Leukocyte Esterase,Urine Large (Negative); Mucus,Urine Few per lpf (None-Few); Nitrite,Urine Negative (Negative); Protein,Urine 30 mg/dL (Neg-Trace); Specific Gravity,Urine 1.015 (1.010-1.025); Squamous Epithelial Cell,Urine Moderate per hpf (None-Few); Urobilinogen,Urine Normal (Normal); WBC,Urine 15-30 per hpf (0-3)
[2020-05-14] MEDS: Ondansetron 4 MG/2 ML VIAL IVP PRN (19:54)
[2020-05-14] MEDS: levoFLOXacin 500 MG/100 ML 500 MG/100 ML BAG IVPB SCH (19:56)
[2020-05-15 03:12] LABS: Basophils % 0.4 %; Eosinophils % 0.5 %; Hematocrit 29.1 % (35.3-44.9); Hemoglobin 9.1 g/dL (11.5-15.4); Immature Granulocytes % 0.1 % (0-4); Lymphocytes # 1.3 K/mcL (0.6-4.6); Lymphocytes % 15.4 %; Mean Corpuscular HGB Conc 31.3 g/dL (31.6-35.5); Mean Corpuscular Hemoglobin 30.5 pg (28.0-33.3); Mean Corpuscular Volume 97.7 fL (83.0-100.0); Mean Platelet Volume 10.3 fL (9.4-12.4); Monocytes # 0.6 K/mcL (0.0-1.3); Monocytes % 7.3 %; Neutrophils # 6.2 K/mcL (1.6-8.9); Platelet Count 283 K/mcL (140-400); Red Blood Count 2.98 M/mcL (3.82-4.97); Red Cell Distribution Width 12.9 % (11.5-14.5); Segmented Neutrophils % 76.3 %; White Blood Count 8.1 K/mcL (4.3-11.1)
[2020-05-15 03:13] LABS: INR 2.2
[2020-05-15 03:23] LABS: Calcium 8.7 mg/dL (8.6-10.3); Magnesium 1.8 mg/dL (1.6-2.6); Potassium 3.8 mEq/L (3.5-5.1)
[2020-05-15] MEDS ORDERED: Metoprolol XL (24 HR) Succ 25 MG TAB.ER.24H PO SCH (10:00)
[2020-05-15] MEDS: Furosemide 20 MG TABLET PO SCH (11:36)
[2020-05-15] MEDS: Metoprolol XL (24 HR) Succ 25 MG TAB.ER.24H PO SCH ×2 (11:36→21:19)
[2020-05-15] MEDS ORDERED: *HR* Heparin 5,000 UNIT/ML VIAL IVP PRN ×2 (12:00)
[2020-05-15] MEDS ORDERED: Heparin 25,000UNIT/250ML 1/2NS 25,000 UNIT/250 ML IV.SOLN IVC SCH (12:00)
[2020-05-15] MEDS ORDERED: *HR* Heparin 5,000 UNIT/ML VIAL IVP ONE (12:00)
[2020-05-15 13:07] LABS: INR 1.4; Prothrombin Time 15.6 Seconds (9.4-12.1)
[2020-05-15 13:09] LABS: Activated Partial Thrombo Time 29.9 Seconds (26.0-36.0)
[2020-05-15 13:10] LABS: Heparin anti-factor XA UFH < 0.04 IU/mL (0.30-0.70)
[2020-05-15 13:11] LABS: Hemoglobin 9.8 g/dL (11.5-15.4); Mean Corpuscular HGB Conc 31.6 g/dL (31.6-35.5); Mean Corpuscular Hemoglobin 30.4 pg (28.0-33.3); Mean Corpuscular Volume 96.3 fL (83.0-100.0); Mean Platelet Volume 10.7 fL (9.4-12.4); Platelet Count 289 K/mcL (140-400); Red Blood Count 3.22 M/mcL (3.82-4.97); Red Cell Distribution Width 12.8 % (11.5-14.5); White Blood Count 9.9 K/mcL (4.3-11.1)
[2020-05-15] MEDS: ETHOSUXIMIDE 250 MG PO SCH (16:41)
[2020-05-15] MEDS: levoFLOXacin 500 MG/100 ML 500 MG/100 ML BAG IVPB SCH (18:31)
[2020-05-16] MEDS: Acetaminophen 325 MG TABLET PO PRN (01:45)
[2020-05-16] MEDS: Ondansetron 4 MG/2 ML VIAL IVP PRN (01:45)
[2020-05-16 03:55] LABS: Basophils % 0.5 %; Eosinophils # 0.1 K/mcL (0.0-0.6); Eosinophils % 1.7 %; Hematocrit 28.9 % (35.3-44.9); Hemoglobin 9.2 g/dL (11.5-15.4); Immature Granulocytes % 0.2 % (0-4); Lymphocytes # 1.1 K/mcL (0.6-4.6); Mean Corpuscular HGB Conc 31.8 g/dL (31.6-35.5); Mean Corpuscular Hemoglobin 31.3 pg (28.0-33.3); Mean Corpuscular Volume 98.3 fL (83.0-100.0); Mean Platelet Volume 10.4 fL (9.4-12.4); Monocytes # 0.8 K/mcL (0.0-1.3); Monocytes % 8.9 %; Neutrophils # 6.4 K/mcL (1.6-8.9); Platelet Count 263 K/mcL (140-400); Red Blood Count 2.94 M/mcL (3.82-4.97); Red Cell Distribution Width 12.8 % (11.5-14.5); Segmented Neutrophils % 75.7 %; White Blood Count 8.4 K/mcL (4.3-11.1)
[2020-05-16 03:56] LABS: INR 1.3
[2020-05-16 04:10] LABS: Calcium 8.7 mg/dL (8.6-10.3); Magnesium 1.8 mg/dL (1.6-2.6); Potassium 3.8 mEq/L (3.5-5.1)
[2020-05-16] MEDS ORDERED: amLODIPine 5 MG TABLET PO SCH (09:00)
[2020-05-16] MEDS: Furosemide 20 MG TABLET PO SCH (09:39)
[2020-05-16] MEDS: Aspirin Enteric Coated 81 MG Tablet PO SCH (09:39)
[2020-05-16] MEDS: Metoprolol XL (24 HR) Succ 50 MG TAB.ER.24H PO SCH ×2 (09:39→21:36)
[2020-05-16] MEDS: ETHOSUXIMIDE 250 MG PO SCH (09:40)
[2020-05-16] MEDS ORDERED: *HR* Heparin 5,000 UNIT/ML VIAL IVP PRN ×2 (10:43)
[2020-05-16] MEDS ORDERED: CloNIDine Patch 0.1 MG PATCH (WEEKLY) TD SCH (11:45)
[2020-05-16] MEDS: Heparin 25,000UNIT/250ML 1/2NS 25,000 UNIT/250 ML IV.SOLN IVC SCH (13:08)
[2020-05-16] MEDS ORDERED: Warfarin perPT PO PRN (18:00)
[2020-05-16] MEDS ORDERED: *HR* Warfarin 1 MG TABLET PO ONE (18:00)
[2020-05-17] MEDS: Latanoprost 2.5 ML BOTTLE BOTH EYES SCH ×2 (05:45→20:49)
[2020-05-17 06:32] LABS: INR 1.3; Prothrombin Time 14.9 Seconds (9.4-12.1)
[2020-05-17 06:45] LABS: Calcium 9.3 mg/dL (8.6-10.3); Magnesium 1.9 mg/dL (1.6-2.6)
[2020-05-17] MEDS: Furosemide 20 MG TABLET PO SCH (08:49)
[2020-05-17] MEDS: Aspirin Enteric Coated 81 MG Tablet PO SCH (08:49)
[2020-05-17] MEDS: Metoprolol XL (24 HR) Succ 50 MG TAB.ER.24H PO SCH ×2 (08:49→20:49)
[2020-05-17 11:10] LABS: Hematocrit 31.1 % (35.3-44.9); Hemoglobin 9.5 g/dL (11.5-15.4); Mean Corpuscular HGB Conc 30.5 g/dL (31.6-35.5); Mean Corpuscular Hemoglobin 29.9 pg (28.0-33.3); Mean Corpuscular Volume 97.8 fL (83.0-100.0); Mean Platelet Volume 10.2 fL (9.4-12.4); Platelet Count 300 K/mcL (140-400); Red Blood Count 3.18 M/mcL (3.82-4.97); Red Cell Distribution Width 12.7 % (11.5-14.5); White Blood Count 9.4 K/mcL (4.3-11.1)
[2020-05-17 11:16] LABS: Heparin anti-factor XA UFH 0.2 IU/mL (0.30-0.70)
[2020-05-17 11:17] LABS: INR 1.3
[2020-05-17] MEDS: ETHOSUXIMIDE 250 MG PO SCH (11:42)
[2020-05-17 16:31] LABS: Calcium 9.2 mg/dL (8.6-10.3); Magnesium 1.9 mg/dL (1.6-2.6); Troponin I 0.07 ng/mL (< 0.04)
[2020-05-17] MEDS: lisinopriL 5 MG TABLET PO SCH (17:26)
[2020-05-17] MEDS ORDERED: *HR* Warfarin 1 MG TABLET PO ONE (18:00)
[2020-05-17] MEDS: Heparin 25,000UNIT/250ML 1/2NS 25,000 UNIT/250 ML IV.SOLN IVC SCH (18:55)
[2020-05-17] MEDS ORDERED: levoFLOXacin 500 MG/100 ML 500 MG/100 ML BAG IVPB SCH (19:00)
[2020-05-18 03:05] LABS: INR 1.6; Prothrombin Time 18.5 Seconds (9.4-12.1)
[2020-05-18] MEDS: Heparin 25,000UNIT/250ML 1/2NS 25,000 UNIT/250 ML IV.SOLN IVC SCH (03:14)
[2020-05-18 03:20] LABS: Calcium 8.5 mg/dL (8.6-10.3); Potassium 3.8 mEq/L (3.5-5.1)
[2020-05-18] MEDS: Furosemide 20 MG TABLET PO SCH (08:42)
[2020-05-18] MEDS: lisinopriL 5 MG TABLET PO SCH (08:43)
[2020-05-18] MEDS: Metoprolol XL (24 HR) Succ 50 MG TAB.ER.24H PO SCH ×2 (08:43→21:44)
[2020-05-18] MEDS: Aspirin Enteric Coated 81 MG Tablet PO SCH (08:44)
[2020-05-18] MEDS: ETHOSUXIMIDE 250 MG PO SCH (08:58)
[2020-05-18] MEDS: Isosorbide MONOnitrate (24 HR) 30 MG TAB.ER.24H PO SCH (10:34)
[2020-05-18] MEDS ORDERED: *HR* Warfarin 1 MG TABLET PO ONE (18:00)
[2020-05-18] MEDS: Latanoprost 2.5 ML BOTTLE BOTH EYES SCH (21:43)
[2020-05-19 03:44] LABS: Basophils % 0.5 %; Eosinophils # 0.2 K/mcL (0.0-0.6); Eosinophils % 2.3 %; Hematocrit 27.3 % (35.3-44.9); Hemoglobin 8.3 g/dL (11.5-15.4); Immature Granulocytes % 0.4 % (0-4); Lymphocytes # 1.3 K/mcL (0.6-4.6); Lymphocytes % 15.9 %; Mean Corpuscular HGB Conc 30.4 g/dL (31.6-35.5); Mean Corpuscular Hemoglobin 29.7 pg (28.0-33.3); Mean Corpuscular Volume 97.8 fL (83.0-100.0); Mean Platelet Volume 10.5 fL (9.4-12.4); Monocytes # 0.7 K/mcL (0.0-1.3); Monocytes % 8.6 %; Neutrophils # 5.9 K/mcL (1.6-8.9); Platelet Count 263 K/mcL (140-400); Red Blood Count 2.79 M/mcL (3.82-4.97); Red Cell Distribution Width 12.8 % (11.5-14.5); Segmented Neutrophils % 72.3 %; White Blood Count 8.1 K/mcL (4.3-11.1)
[2020-05-19 03:52] LABS: INR 2.1; Prothrombin Time 24.1 Seconds (9.4-12.1)
[2020-05-19 04:06] LABS: Calcium 8.5 mg/dL (8.6-10.3)
[2020-05-19] MEDS: Isosorbide MONOnitrate (24 HR) 30 MG TAB.ER.24H PO SCH (08:42)
[2020-05-19] MEDS: Aspirin Enteric Coated 81 MG Tablet PO SCH (08:42)
[2020-05-19] MEDS: Metoprolol XL (24 HR) Succ 50 MG TAB.ER.24H PO SCH ×2 (08:42→21:06)
[2020-05-19] MEDS: ETHOSUXIMIDE 250 MG PO SCH ×2 (08:43→08:44)
[2020-05-19] MEDS: Sennosides 8.6 MG TABLET PO SCH (14:37)
[2020-05-19] MEDS ORDERED: *HR* Warfarin 1 MG TABLET PO ONE (18:00)
[2020-05-19] MEDS: Latanoprost 2.5 ML BOTTLE BOTH EYES SCH (21:07)
[2020-05-20 05:22] LABS: Basophils % 0.3 %; Eosinophils # 0.1 K/mcL (0.0-0.6); Eosinophils % 1.8 %; Hematocrit 28.3 % (35.3-44.9); Hemoglobin 8.7 g/dL (11.5-15.4); Immature Granulocytes % 0.3 % (0-4); Lymphocytes # 1.1 K/mcL (0.6-4.6); Lymphocytes % 13.9 %; Mean Corpuscular HGB Conc 30.7 g/dL (31.6-35.5); Mean Corpuscular Hemoglobin 30.2 pg (28.0-33.3); Mean Corpuscular Volume 98.3 fL (83.0-100.0); Mean Platelet Volume 10.3 fL (9.4-12.4); Monocytes # 0.7 K/mcL (0.0-1.3); Monocytes % 8.3 %; Platelet Count 268 K/mcL (140-400); Red Blood Count 2.88 M/mcL (3.82-4.97); Red Cell Distribution Width 12.9 % (11.5-14.5); Segmented Neutrophils % 75.4 %; White Blood Count 7.9 K/mcL (4.3-11.1)
[2020-05-20 05:23] LABS: INR 2.2; Prothrombin Time 25.1 Seconds (9.4-12.1)
[2020-05-20 05:38] LABS: Calcium 9.3 mg/dL (8.6-10.3)
[2020-05-20] MEDS: Aspirin Enteric Coated 81 MG Tablet PO SCH (09:15)
[2020-05-20] MEDS: Metoprolol XL (24 HR) Succ 50 MG TAB.ER.24H PO SCH (09:15)
[2020-05-20] MEDS: Sennosides 8.6 MG TABLET PO SCH (09:15)
[2020-05-20] MEDS: Isosorbide MONOnitrate (24 HR) 30 MG TAB.ER.24H PO SCH (09:15)
[2020-05-20] MEDS: ETHOSUXIMIDE 250 MG PO SCH (09:22)
[2020-05-20] MEDS: Acetaminophen 325 MG TABLET PO PRN (09:56)
[2020-05-20] MEDS ORDERED: Bisacodyl 10 MG RECTAL SUPPOSITORY RC STA (09:57)
[2020-05-20 11:20] VITALS: BP 131/63
[2020-05-20] MEDS ORDERED: *HR* Warfarin 1 MG TABLET PO ONE (18:00)
== END 2020-05-20 15:11 | disposition hospice, home (50) | DRG 280 ==
LOC: EMEROOARM 14:25 → 3ANU 14:25 → SUATTDRO 18:04 → 3ANU 18:51 → SUATTDRO 05-15 14:41
PROVIDERS: ADMIT Pharmacist; ATTEND Internal Medicine